=== PATIENT | female | born 1975 | race Two or more races ===

== ENCOUNTER 2019-07-29 13:28 | Emergency (ER) | payer OTHER ==
[~2019-07-29] VITALS: Ht 165.1 cm; Wt 90.4 kg
[2019-07-29 13:28] VITALS: BP 128/70
--- NOTE | 2019-07-29 13:55 | PHYS DOC ---
Past History Past Medical History: No Pertinent History Past Surgical History: Past Surgical History Breast augmentation, abdominoplasty Adult General Chief Complaint Chief Complaint: VAGINAL PROBLEM HPI HPI Patient is a pleasant 43-year-old female who presents to the emergency department for evaluation. She states that she is on day 5 of her period, which began at its normal time, she is normally finishing up her period at this time, but states that for the past 24 hours she has had heavier flow, with some blood clots. She denies any dizziness or lightheadedness. She does have some mild pelvic and lower back pain, something she typically gets with her menstrual cycle. She denies any dysuria, or urinary frequency, she denies any other vaginal discharge. She denies any numbness, weakness, or incontinence associated with her back pain. She does not take any contraceptives. There are no alleviating or exacerbating factors to her symptoms. Review of Systems Review of Systems Constitutional: Denies fever or chills [] Eyes: Denies change in visual acuity, redness, or eye pain [] HENT: Denies nasal congestion or sore throat [] Respiratory: Denies cough or shortness of breath [] Cardiovascular: The patient denies any shortness of breath, chest pain, palpitations, or orthopnea. The patient denies any lightheadedness. [] GI: Denies abdominal pain, nausea, vomiting, bloody stools or diarrhea [] : Denies dysuria or hematuria [] Musculoskeletal: Denies joint pain [] Integument: Denies rash or skin lesions [] Neurologic: Denies headache, focal weakness or sensory changes [] Endocrine: Denies polyuria or polydipsia [] All other systems were reviewed and found to be within normal limits, except as documented in this note. Allergies Allergies Allergies Coded Allergies Type Severity Reaction Last Updated Verified No Known Drug Allergies 07/29/19 No Physical Exam Physical Exam PHYSICAL EXAM: CONSTITUTIONAL: Well developed, well nourished HEAD: normocephalic, atraumatic EENT: PERRL, EOMI. Conjunctivae normal color, sclerae non-icteric; moist mucous membranes. NECK: Supple, non-tender; no meningismus. LUNGS: Lungs CTA, breathing even and unlabored. Normal air movement. HEART: Regular rate and rhythm, no murmur CHEST: No deformity; non-tender ABDOMEN: The abdomen is soft, and non-tender, no masses or bruits. EXTREM: Normal ROM; no deformity, no calf tenderness. Normal pulses palpable in all extremities. There is no pedal edema. SKIN: No rash; no diaphoresis NEURO: Alert; normal speech and cognition; CN's grossly intact; strength grossly intact without focal deficit. Patellar reflexes are 2+ bilaterally. There is no foot drop. There is no perineal anesthesia. Sensation is intact distally. BACK: No CVA TTP.There is no bony tenderness to palpation of the thoracic or carmina mbar spine. The paraspinal muscles are nontender. Current Patient Data Lab Results Laboratory Tests Test 07/29/19 13:42 07/29/19 13:54 07/29/19 14:18 Urine Collection Type Unknown Urine Color Yellow Urine Clarity Clear Urine pH 6.5 Urine Specific [place] 1.025 Urine Protein Neg Urine Glucose (UA) Neg mg/dL Urine Ketones (Stick) Neg mg/dL Urine Blood Large Urine Nitrite Neg Urine Bilirubin Neg Urine Urobilinogen Dipstick 0.2 mg/dL Urine Leukocyte Esterase Neg Urine RBC 11-20 /HPF Urine WBC 1-4 /HPF Urine Squamous Epithelial Cells Few /LPF Urine Bacteria 0 /HPF Urine Mucus Slight /LPF Bedside Urine HCG, Qualitative hcg negative White Blood Count 5.3 x10^3/uL Red Blood Count 4.52 x10^6/uL Hemoglobin 14.0 g/dL Hematocrit 42.0 % Mean Corpuscular Volume 93 fL Mean Corpuscular Hemoglobin 31 pg Mean Corpuscular Hemoglobin Concent 33 g/dL Red Cell Distribution Width 13.8 % Platelet Count 185 x10^3/uL Neutrophils (%) (Auto) 58 % Lymphocytes (%) (Auto) 28 % Monocytes (%) (Auto) 12 % Eosinophils (%) (Auto) 2 % Basophils (%) (Auto) 1 % Neutrophils # (Auto) 3.1 x10^3uL Lymphocytes # (Auto) 1.5 x10^3/uL Monocytes # (Auto) 0.6 x10^3/uL Eosinophils # (Auto) 0.1 x10^3/uL Basophils # (Auto) 0.0 x10^3/uL Prothrombin Time 10.3 SEC Prothromb Time International Ratio 1.0 Activated Partial Thromboplast Time 26 SEC Sodium Level 141 mmol/L Potassium Level 3.9 mmol/L Chloride Level 106 mmol/L Carbon Dioxide Level 29 mmol/L Anion Gap 6 Blood Urea Nitrogen 13 mg/dL Creatinine 0.7 mg/dL Estimated GFR (Cockcroft-Gault) 90.9 Glucose Level 85 mg/dL Calcium Level 9.2 mg/dL EKG EKG [] Radiology/Procedures Radiology/Procedures [] Course & Med Decision Making Course & Med Decision Making Pertinent Labs studies reviewed. (See chart for details) []Patient remains stable. I discussed test results, the need for close follow- up, and return precautions. Dragon Disclaimer Dragon Disclaimer This electronic medical record was generated, in whole or in part, using a voice recognition dictation system. Departure Departure: Impression: Primary Impression: Menorrhagia Disposition: 01 HOME, SELF-CARE Condition: STABLE Patient Instructions: Menorrhagia Additional Instructions: Follow-up with [facility] at [facility]. Please call [phone] to schedule follow-up appointment. Return to medical care for any new or worsening symptoms, development of increasing pain, dizziness, lightheadedness, fevers, or any other new, or concerning symptoms. JOJO HAYES MD Jul 29, 2019 13:55
[2019-07-29 14:21] LABS: BILIRUBIN,URINE NEG (NEG); CLARITY,URINE CLEAR; COLOR,URINE YELLOW; GLUCOSE,URINE NEG (NEG)
[2019-07-29 14:22] LABS: BACTERIA,URINE 0 /HPF (0-FEW); NITRITE,URINE NEG (NEG); SQUAMOUS EPITHELIAL CELL,UR FEW /LPF; UROBILINOGEN,URINE 0.2 mg/dL (0.2 mg/dL)
[2019-07-29 14:40] LABS: BASO % 1 % (0-3); EOS # 0.1 x10^3/uL (0.0-0.7); EOS % 2 % (0-3); LYMPH # 1.5 x10^3/uL (1.0-4.8); LYMPH % 28 % (24-48); MEAN CORPUSCULAR HEMOGLOBIN 31 pg (25-35); MEAN CORPUSCULAR HGB CONC 33 g/dL (31-37); MEAN CORPUSCULAR VOLUME 93 fL (79-100); MONO # 0.6 x10^3/uL (0.0-1.1); MONO % 12 % (0-9); NEUT # 3.1 x10^3uL (1.8-7.7); NEUT % 58 % (31-73); PLATELET COUNT 185 x10^3/uL (140-400); RED BLOOD COUNT 4.52 x10^6/uL (3.50-5.40); RED CELL DISTRIBUTION WIDTH 13.8 % (11.5-14.5); WHITE BLOOD COUNT 5.3 x10^3/uL (4.0-11.0)
[2019-07-29 14:52] LABS: CALCIUM 9.2 mg/dL (8.5-10.1); CREATININE 0.7 mg/dL (0.6-1.0); GFR 90.9; POTASSIUM 3.9 mmol/L (3.5-5.1)
== END 2019-07-29 15:36 | disposition home or self-care (01) ==
LOC: ER 13:28
DX: N92.0 Excessive and frequent menstruation with regular cycle (principal); R10.2 Pelvic and perineal pain; M54.5 Low back pain; Z98.890 Other specified postprocedural states
CPT/HCPCS: 36415; 80048; 81001; 81025; 85025; 85610; 85730; 99283

== ENCOUNTER → 2019-09-28 | Outpatient (CLI) | payer OTHER ==
--- NOTE | 2019-09-28 11:02 | RAD ---
INDICATION: Dysmenorrhea with bleeding COMPARISON: None. TECHNIQUE: Grayscale and color ultrasound images uterus and adnexa. Transabdominal and transvaginal images obtained. Transvaginal images were needed to better visualize structures that were limited on transabdominal imaging. FINDINGS: Uterus: 113 x 67 x 52 mm. Endometrial Stripe: 18 mm. Right Ovary: 31 x 33 x 22 mm. Left Ovary: Obscured by the bowel gas. Small fluid at cervix. Cystic lesion right ovary 26 x 23 x 18 mm. IMPRESSION: * Small right ovarian cyst with obscured left ovary. * Heterogenous appearance of the uterus. Could be background heterogeneity of myometrium but fibroid could also have this appearance. * Small amount of fluid within the endometrial stripe Electronically signed by: Dani Al MD (09/28/2019 10:59 AM) [id number]
== END | disposition home or self-care (01) ==
LOC: US 09:52
PROVIDERS: ATTEND Obstetrics & Gynecology
DX: N83.201 Unspecified ovarian cyst, right side (principal)
CPT/HCPCS: 76830; 76856